=== PATIENT | male | born 1960 | race Caucasian/White ===

== ENCOUNTER 2024-07-14 16:19 | Emergency (ER) | payer BC, SELFPAY ==
--- OUTSIDE RECORDS SUMMARY | 2024-07-14 16:28 | XMS_ITS | Encounter Summary ---
Author Organization [facility] Address [address] [place] [address] Phone Care Team Providers Care Sales Advisory Manager Name Role Phone Don Caba MD Primary Care Provider [phone] Isaiah Solomon MD Unavailable Reason for Visit * Reason Comments Medication Refill Encounter Details Date Type Department Care Team (Late st Contact Info) Description 07/06/2023 Refill [facility] - [facility] [address] [place] [address] Don Caba MD [address] [address] Medication Refill Social History Tobacco Use Types Packs/Day Years Used Date Smoking Tobacco: Every Day Cigarettes 0.3 46.4 Started: 1979 Smokeless Tobacco: Never Comments:Patient states he h as 1-2 cigarettes per day Alcohol Use Standard Drinks/Week Comments Not Currently 18 (1 standard drink = 0.6 oz pu re alcohol) [facility] Utilities Answer Date Recorded In the past 12 months has [employer], gas, oil, or water company threatened to shut off services in your home? No 04/07/2023 Social Connection and Isolat ion Panel [NHANES] Answer Date Recorded In a typical week, how many times do you talk on the phone with family, friends, or neighbors? More than three times a week 04/07/2023 How often do you get togethe r with friends or relatives? More than three times a week 04/07/2023 How often do you attend chur ch or yazdanism services? Patient declined 04/07/2023 Do you belong to any clubs o r organizations such as orthodoxy groups, unions, fraternal or athletic groups, or school groups? No 04/07/2023 How often do you attend meet ings of the clubs or organizations you belong to? Never 04/07/2023 Are you , , di vorced, , never , or living with a partner? 04/07/2023 AUDIT-C Answer Date Recorded Q1: How often do you have a drink containing alc ohol? 2-3 times a week 04/07/2023 Q2: How many drinks containi ng alcohol do you have on a typical day when you are drinking? 1 or 2 04/07/2023 Q3: How often do you have si x or more drinks on one occasion? Monthly 04/07/2023 PHQ-2 Answer Date Recorded Total Score - Questions 1-9 0 02/28 [facility] - Occupational Stress Questionnaire Answer Date Recorded Do you feel stress - tense, restless, nervous, or anxious, or unable to sleep at night because your mind is troubled all the time - these days? Only a little 04/07/2023 Exercise Vital Sign Answer Date Recorde d On average, how many days pe r week do you engage in moderate to strenuous exercise (like a brisk walk)? 4 days 04/07/2023 On average, how many minutes do you engage in exercise at this level? 60 min 04/07/2023 Hunger Vital Sign Answer Date Recorded Within the past 12 months, y ou worried that your food would run out before you got the money to buy more. Patient declined Within the past 12 months, t he food you bought just didn't last and you didn't have money to get more. Patient declined 09/2023 PRAPARE - Transportation Answer Date Re corded In the past 12 months, has l ack of transportation kept you from medical appointments or from getting medications? No 09/2023 In the past 12 months, has l ack of transportation kept you from meetings, work, or from getting things needed for daily living? No 04/07/2023 Housing Stability Vital Sign Answer Mario e Recorded In the last 12 months, was t here a time when you were not able to pay the mortgage or rent on time? No 04/07/2023 In the last 12 months, how many places have you lived? 1 04/07/2023 In the last 12 months, was t here a time when you did not have a steady place to sleep or slept in a retirement (including now)? No 04/07/2023 Education Answer Date Recorded What is the highest level of school you have completed or the highest degree you have received? Bachelor's degree (e.g., BA, AB, BS) 09/29/2022 Sexually Active Control Partners Comments Not Currently Female Sex and Gender Information Value Date Recorded Sex Assigned at Not on file Legal Sex Male 9:18 PM CDT Gender Identity Not on file Sexual Orientation Not on file documented as of this encounter Miscellaneous Notes * Telephone Encounter - Marilee Emanuel RN - 07/07/2023 8:56 AM CDT Medication(s) refilled and signed per [facility] Chronic Medication Refill Standing Order for Pediatricand Adult Patients. Requested Prescriptions Pending Prescriptions Disp Refills simvastatin (ZOCOR) 40 MG Tablet [Pharmacy Med Name: SIMVASTATIN TABS 40MG] 90 Tablet 1 Sig: Take 1 Tablet by mouth nightly. Hmg CoA Reductase Inhibitors Protocol Passed - 07/06/2023 6:24 PM Passed - Visit with relevant provider in past 12 months or upcoming 90 days Recent Visits Date Type Provider Dept 04/07/23 Office Visit Don Caba MD [facility] 10/05/22 Office Visit Don Caba MD [facility] 09/29/22 Office Visit Tyrell Garcia PHARMACIST IN CHARGE, [facility] Nayan Showing recent visits within past 365 days and meeting all other requirements Future Appointments No visits were found meeting these conditions. Showing future appointments within next 90 days and meeting all other requirements Passed - Lipid panel in past 12 months LDL Date Value Ref Range Status 03/31/2023 109 <130 mg/dL Final HDL CHOLESTEROL Date Value Ref Range Status 03/31/2023 53 >40 mg/dL Final CHOLESTEROL Date Value Ref Range Status 03/31/2023 232 (H) <200 mg/dL Final TRIGLYCERIDES Date Value Ref Range Status 03/31/2023 349 (H) <150 mg/dL Final VLDL Date Value Ref Range Status 03/31/2023 70 (H) 10 - 50 mg/dL Final CHOL/HDL RATIO Date Value Ref Range Status 03/31/2023 4.4 0.0 - 4.4 Final NON-HDL CHOLESTEROL Date Value Ref Range Status 03/31/2023 179 (H) <130 mg/dL Final Passed - CMP in past 12 months SODIUM Date Value Ref Range Status 03/31/2023 139 136 - 145 mmol/L Final POTASSIUM Date Value Ref Range Status 03/31/2023 4.3 3.5 - 5.1 mmol/L Final CHLORIDE Date Value Ref Range Status 03/31/2023 106 98 - 107 mmol/L Final CO2, VENOUS Date Value Ref Range Status 03/31/2023 25 22 - 30 mmol/L Final ANION GAP Date Value Ref Range Status 03/31/2023 12.3 <18.0 mmol/L Final GLUCOSE Date Value Ref Range Status 03/31/2023 85 70 - 99 mg/dL Final BUN Date Value Ref Range Status 03/31/2023 8 8 - 26 mg/dL Final CREATININE, BLOOD Date Value Ref Range Status 03/31/2023 0.88 0.70 - 1.30 mg/dL Final BUN/CREATININE RATIO Date Value Ref Range Status 03/31/2023 9 (L) 12 - 20 ratio Final TOTAL PROTEIN Date Value Ref Range Status 03/31/2023 7.6 6.3 - 8.2 g/dL Final ALBUMIN Date Value Ref Range Status 03/31/2023 4.4 3.5 - 5.0 g/dL Final A/G RATIO Date Value Ref Range Status 03/31/2023 1.4 1.0 - 2.2 Final CALCIUM Date Value Ref Range Status 03/31/2023 9.3 8.7 - 10.5 mg/dL Final T BILI Date Value Ref Range Status 03/31/2023 0.6 0.2 - 1.2 mg/dL Final SGOT (AST) Date Value Ref Range Status 03/31/2023 25 5 - 34 U/L Final SGPT (ALT) Date Value Ref Range Status 03/31/2023 26 0 - 55 U/L Final ALKALINE PHOSPHATASE Date Value Ref Range Status 03/31/2023 92 40 - 150 U/L Final GFR, EST. NONAFRICAN Date Value Ref Range Status 03/31/2023 >60 >=60 Final GFR, EST. Date Value Ref Range Status 03/31/2023 >60 >=60 Final GFR, ESTIMATED Date Value Ref Range Status 03/31/2023 >60 >=60 Final Comment: Creatinine Clearance is the preferred criteria for selecting drug dose adjustments in renally impaired patients. The GFR is provided as additional pertinent clinical information. GFR is reported in mL/min/1.73 sq m. Calculation based on the Chronic Kidney Disease Epidemiology Collaboration (CKD- EPI) equation refitwithout adjustment for race. IS THE PATIENT REQUIRED TO BE FASTING? Date Value Ref Range Status 03/31/2023 No Final documented in this encounter Plan of Treatment Upcoming Encounters Date Type Department Care Team (Late st Contact Info) Description 10/02/2024 8:30 AM CDT Lab [facility] [address] [address] [facility] Lab/Ancillary 10/09/2024 1:30 PM CDT Office Visit [facility] - [facility] - [place] [address] [place] [address] Don Caba MD #[address] [address] documented as of this encounter Visit Diagnoses Not on filedocumented in this encounter Additional Health Concerns Assessment Noted Time PHQ-9 Depression Total Score: 0 03/12/19 21 2:36 PM [employer] documented as of this encounter Care Teams Sales Advisory Manager Relationship Specialty Start Date End Date Don Caba MD [address] [address] PCP - General Family Medicine 11/21/15 Isaiah Solomon MD [address] [address] Consulting Physician Colon and Rectal Surgery 06/24/22 documented as of this encounter
--- OUTSIDE RECORDS SUMMARY | 2024-07-14 16:28 | XMS_ITS | Clinical Summary ---
Author Organization [facility] Address [address] [address] Phone Care Team Providers Care Kettle Worker Name Role Phone Don Caba MD Primary Care Provider [phone] Isaiah Solomon MD Unavailable Allergies No known active allergies Medications Multiple Vitamin (MULTI-VITAMIN PO) Take by mouth. Active fish oil-omega-3 fatty acids 1000 MG Capsule Take 2,000 mg by mouth daily. Active ibuprofen (MOTRIN) 200 MG Tablet Take 2 Tablets by mouth every 6 hours as needed for Mild or more severe pain. 30 Tablet 3 Active Naproxen Sodium (ALEVE PO) Take by mouth. Active sildenafil citrate (VIAGRA) 100 MG TabletIndications :Vasculogenic erectile dysfunction, unspecified vasculogenic erectile dysfunction type Take 1 Tablet by mouth as needed for Erectile Dysfunction. 10 Tablet 11 4 Active losartan (COZAAR) 50 MG Tablet TAKE 1 TABLET DAILY 90 Tablet 1 4 Active simvastatin (ZOCOR) 40 MG Tablet TAKE 1 TABLET NIGHTLY 90 Tablet 1 5 Active Active Problems Problem Noted Date Diagnosed Date Postoperative ileus 08/27/2022 Polyp of cecum 08/23/2022 Cecal polyp 08/23/2022 Tobacco abuse 11/08/2016 Vasculogenic erectile dysfunction 05/03/2016 Physical exam, annual (Adult) 05/03/2016 Hyperlipemia 02/12/2015 Encounters Date Type Department Care Team Description 06/12/2024 Refill [facility] [place] [address] [place] [address] Don Caba MD Medication Refill from Last 3 Months Immunizations Immunization Administration Dates Next Due Covid-19, Mrna, Lnp-s, Bival ent, Moderna, 50 Mcg or 25 mcg dose 12/25/2021 Covid-19, Mrna, Lnp-s, Pf, 3 0 Mcg/0.3 Ml Dose (AirWatch) 03/05/2021 Influenza Vaccine 12/07/2022,01/06/2022,12/11/19 21 Influenza Vaccine less than 3 yrs 12/13/2023,02/201412/30/2015 Influenza, Seasonal, Injecta ble, Undefined 12/29/2014 Pneumococcal Vaccine Adult - 23 Valent 7 TDAP Vaccine 10/07/2016 Family History Medical History Relation Name Comments No Known Problems Daughter Bladder cancer Father Cancer Father bladder Diabetes Father Heart Disease Father High Cholesterol Father Rheumatoid Arthritis Father Cancer Maternal Grandfather Prostate Cancer Maternal Grandfather No Known Problems Maternal Grandmother Hypertension Mother Pacemaker Mother Stroke Mother No Known Problems Paternal Grandfather No Known Problems Paternal Grandmother Heart Disease Sister 1 Heart murmur No Known Problems Sister 2 No Known Problems Son Relation Name Status Comments Daughter Alive Father Alive Maternal Grandfather Maternal Grandmother Mother Alive Paternal Grandfather Paternal Grandmother Sister 1 Alive Sister 2 Alive Son Alive Social History Tobacco Use Types Packs/Day Years Used Date Smoking Tobacco: Every Day Cigarettes 0.3 46.4 Started: 1979 Smokeless Tobacco: Never Tobacco Cessation:Ready to Q uit: Not Asked; Counseling Given: No Comments:Patient states he has 1-2 cigarettes per day Alcohol Use Standard Drinks/Week Comments Not Currently 18 (1 standard drink = 0.6 oz pu re alcohol) [facility] Utilities Answer Date Recorded In the past 12 months has [employer], oil, or water [employer] threatened to shut off services in your [...] 04/07/2023 How often do you attend chur or adventist services? Patient declined 04/07/2023 Do you belong to any clubs o r organizations such as moravian groups, unions, fraternal or athletic groups, or [...] Total Score - Questions 1-9 0 02/28 [facility] - Occupational Stress Questionnaire Answer Date Recorded [...] place to sleep or slept in a nursing home (including now)? No 04/07/2023 Education Answer Date [...] on file Sexual Orientation Not on file Last Filed Vital Signs Vital Sign Reading Time Taken Comments Blood Pressure 102/62 04/11/2024 1:09 PM [employer]AIL OFFICE ASSOCIATE Pulse 82 04/11/2024 1:09 PM RETAIL OFFICE ASSOCIATE Temperature 36.5 C (97.7 F) 04/11/2024 1:09 PM RETAIL OFFICE ASSOCIATE Respiratory Rate 16 04/11/2024 1:09 PM RETAIL OFFICE ASSOCIATE Oxygen Saturation 100% 04/11/2024 1:09 PM RETAIL OFFICE ASSOCIATE Inhaled Oxygen Concentration - - Weight 86.4 kg (190 lb 6.4 oz) 04/11/2024 1:09 P M RETAIL OFFICE ASSOCIATE Height 175.3 cm (5' 9 ) 04/11/2024 1:09 PM RETAIL OFFICE ASSOCIATE Body Mass Index 28.12 04/11/2024 1:09 PM RETAIL OFFICE ASSOCIATE Plan of Treatment Upcoming Encounters Date Type Department Care Team (Late st Contact Info) Description 10/02/2024 8:30 AM CDT Lab [facility] [address] [place] [address] [facility]/Ancillary 10/09/2024 1:30 PM CDT Office Visit [facility] [place] [address] [place] [address] Don Caba MD [address] [address] Health Maintenance Due Date Last Done Comments Hepatitis C Virus (HCV) Screening 1960 Cologuard 08/13/2009 Immunochemical Fecal Occult Blood 08/13/2009 Zoster Immunization (1 of 2) 08/13/2009 Pneumococcal Immunization (50+ years) (2 of 2 - PCV) 11/08/2017 11/08/2016 Td Immunization Every 10 Years (Adults With 1 Tdap) 10/07/2026 10/07/2016 Colonoscopy 06/08/2032 06/08/2022, 02/05/2014 Colorectal Cancer Screening 06/08/2032 Respiratory Syncytial Virus (RSV) Immunization (Adult) (1 - 1-dose 75+ series) 08/13/2034 06/08/2022, 02/05/2014 Pneumococcal Immunization Combined Discontinued 11/08/2016 Lung Cancer Screening Discontinued 08/25/2022 PSA Discussion Completed 10/06/2023, 02/28, 04/27/2016, Additional history exists Influenza Immunization Completed 4, 12/07/2022, 01/06/2022, Additional history exists SARS-COV-2 Immunization Completed 12/27/19 24, 12/06/2022, 12/25/2021, Additional history exists Hepatitis B Immunization Aged Out No longer eligible based on patient's age to complete this topic Meningococcal Immunization (ACWY) Aged Out No longer eligible based on patient's age to complete this topic Rotavirus Immunization Aged Out No lo nger eligible based on patient's age to complete this topic Procedures Procedure Name Priority Date/Time Associated Diagnosis Comments PSA SCREEN Routine 10/06/2023 7:52 AM CDT Screening for prostate cancer CT ANGIO CHEST W/WO ABDOMEN PELVIS W CONTRAST STAT 08/25/2022 8:35 AM CDT HM COLONOSCOPY Routine 02/05/2014 from Last 3 Months or Most Recently Relevant to Health Maintenance Results * PSA SCREEN (10/06/2023 7:52 AM CDT) PSA SCREEN, TOTAL 1.32 <4.00 ng/mL 10/06/2023 1:35 PM CDT [facility] Blood Venipuncture / Unknown 10/06/2023 7:52 AM CDT 10/06/2023 7:52 AM CDT Narrative [facility] - 10/06/2023 1:35 PM CDT The ALINITY Total PSA assay is a Chemiluminescent Microparticle Immunoassay (CMIA) for the quantitative determination of total PSA (both free PSA and PSA complexed to [id number]) in human serum. Total PSA values obtained with different assay methods, including Butler PSA assays, cannot be used interchangeably. us Don Caba MD CHEMISTRY ORDERABLES Final Re sult [facility] [address] [place] [address] * CT ANGIO CHEST W/WO ABDOMEN PELVIS W CONTRAST (08/25/2022 8:35 AM CDT) Anatomical Region Laterality Modality Chest N/A Computed Tomogra phy 08/25/2022 9:06 AM CDT Impressions 08/25/2022 9:09 AM CDT IMPRESSION: No evidence of pulmonary embolism. Consolidation of the right lung base, and to a lesser extent the left lung base. Findings are concerning for pneumonia and/or aspiration. Significant postoperative atelectasis could potentially have a similar appearance. Clinical correlation recommended. Surgical changes of right hemicolectomy and ileocolic anastomosis. Small to moderate free air and free fluid are within expected limits 2 days postoperatively. No convincing evidence of obstruction or fátima leak at the anastomotic site in the right upper quadrant. Abnormally distended and fluid-filled small bowel with multiple air-fluid levels. Gradual transition to more normal caliber in the distal ileum. Delayed passage of oral contrast into the stomach, duodenum, and proximal most loops of jejunum. Findings are most compatible with a significant postoperative ileus. Narrative 08/25/2022 9:09 AM CDT EXAM DESCRIPTION: CT ANGIO CHEST W/WO ABDOMEN PELVIS W CONTRAST REASON FOR STUDY: evaluate for PE s/p RT hemicolectomy on 08/23/22 leak at site. pt has fever . TECHNIQUE: CT angiogram of the chest with routine abdomen and pelvis performed with intravenous and with oral contrast using helical scanning technique with dynamic intravenous contrast injection. Reconstructed coronal and sagittal MPR images reviewed. All images stored on PACS. 3D MIP images of the chest rendered on scanning unit and reviewed at time of interpretation. Automated exposure control was used as a dose optimization technique for this examination. CONTRAST TYPE/DOSE: 100mL of IOPAMIDOL 76 % IV SOLN injected via Intravenous COMPARISON: None available REFERENCE: Per ACR white paper recommendations, unless otherwise specified no follow-up imaging is recommended for incidental renal and adrenal lesions per consensus recommendations based on imaging criteria. Further lab evaluation could be pursued based on clinical findings. FINDINGS: CHEST CHEST VASCULATURE: Contrast opacification of the pulmonary arterial system is adequate for diagnostic purposes. There is no evidence of pulmonary embolism. LUNGS: Consolidation of the right lung base. Milder opacities in the left lower lobe, consolidation or atelectasis. Large airways are clear. No significant structural lung disease scratch at minor apical emphysematous changes. No suspicious pulmonary mass or nodule seen. PLEURA: No effusion. No pneumothorax. MEDIASTINUM/KERVIN: Bulky calcified granulomas in the mediastinum. No mediastinal or hilar lymphadenopathy. No mediastinal mass. Unremarkable included portions of the thyroid. HEART: Heart size is normal with no pericardial effusion. Coronary calcifications, most pronounced in the left anterior descending artery. Nonaneurysmal thoracic aorta with conventional 3 vessel arch branching pattern and mild atherosclerosis. AXILLA: No adenopathy. CHEST WALL: No masses. No subcutaneous air. HARDWARE/LINES/TUBES: None. MUSCULOSKELETAL CHEST: No acute fracture. No suspicious osseous lesion. Fused anterior osteophytes in the lower thoracic spine. Mild disc degeneration. Significant degenerative changes of both shoulders. ABDOMEN/PELVIS LIVER: Normal size and contour. Patent and normally enhancing portal venous system. No focal liver lesion. No significant steatosis. GALLBLADDER: Mostly decompressed and normal in appearance. BILE DUCTS: No intrahepatic or extrahepatic biliary dilation. SPLEEN: Normal size and contour. Calcified granulomas. PANCREAS: Normal parenchymal bulk, morphology, and enhancement pattern. No duct dilation. No inflammatory change. ADRENALS: Normal. KIDNEYS/URINARY TRACT: Normal and symmetric renal size, contour, and enhancement. Simple cyst in the anterior right mid kidney. No stones. No hydroureteronephrosis. Urinary bladder is unremarkable. GI/PERITONEUM: Surgical changes of right hemicolectomy and ileocolic anastomosis are evident. No obstruction. No discrete fluid collection adjacent to the anastomotic site. There is small volume free fluid in the abdomen and pelvis. There is small to moderate free air, within expected limits 2 days postoperatively. There is abnormal distension and fluid filling the small bowel, with multiple air-fluid levels. There is delayed passage of oral contrast, which is seen within the stomach, duodenum, and proximal most loops of jejunum. There is gradual transition to more normal caliber in the distal ileum, without focal transition point. There is colonic diverticulosis without evidence of acute diverticulitis. RETROPERITONEUM: No mass or adenopathy. REPRODUCTIVE: No significant abnormality. VASCULATURE ABDOMEN: No abdominal aortic aneurysm. Moderate atherosclerotic calcifications. MUSCULOSKELETAL ABDOMEN PELVIS: No acute fracture. No suspicious lytic or sclerotic bone lesion. [id number] disc degeneration in the lumbar spine. OTHER: No significant abnormality. THIS IS AN ELECTRONICALLY VERIFIED FINAL REPORT 08/25/2022 9:06 AM - Electronically signed by Duong Persaud M.D. BC: JONH Report ID: [id number] Reading Location: [id number] Procedure Note Duong Persaud MD - 08/25/2022 EXAM DESCRIPTION: CT ANGIO CHEST W/WO ABDOMEN PELVIS W CONTRAST REASON FOR STUDY: evaluate for PE s/p RT hemicolectomy on 08/23/22 leak at site. pt has fever . TECHNIQUE: CT angiogram of the chest with routine abdomen and pelvis performed with intravenous and with oral contrast using helical scanning technique with dynamic intravenous contrast injection. Reconstructed coronal and sagittal MPR images reviewed. All images stored on PACS. 3D MIP images of the chest rendered on scanning unit and reviewed at time of interpretation. Automated exposure control was used as a dose optimization technique for this examination. CONTRAST TYPE/DOSE: 100mL of IOPAMIDOL 76 % IV SOLN injected via Intravenous COMPARISON: None available REFERENCE: Per ACR white paper recommendations, unless otherwise specified no follow-up imaging is recommended for incidental renal and adrenal lesions per consensus recommendations based on imaging criteria. Further lab evaluation could be pursued based on clinical findings. FINDINGS: CHEST CHEST VASCULATURE: Contrast opacification of the pulmonary arterial system is adequate for diagnostic purposes. There is no evidence of pulmonary embolism. LUNGS: Consolidation of the right lung base. Milder opacities in the left lower lobe, consolidation or atelectasis. Large airways are clear. No significant structural lung disease scratch at minor apical emphysematous changes. No suspicious pulmonary mass or nodule seen. PLEURA: No effusion. No pneumothorax. MEDIASTINUM/KERVIN: Bulky calcified granulomas in the mediastinum. No mediastinal or hilar lymphadenopathy. No mediastinal mass. Unremarkable included portions of the thyroid. HEART: Heart size is normal with no pericardial effusion. Coronary calcifications, most pronounced in the left anterior descending artery. Nonaneurysmal thoracic aorta with conventional 3 vessel arch branching pattern and mild atherosclerosis. AXILLA: No adenopathy. CHEST WALL: No masses. No subcutaneous air. HARDWARE/LINES/TUBES: None. MUSCULOSKELETAL CHEST: No acute fracture. No suspicious osseous lesion. Fused anterior osteophytes in the lower thoracic spine. Mild disc degeneration. Significant degenerative changes of both shoulders. ABDOMEN/PELVIS LIVER: Normal size and contour. Patent and normally enhancing portal venous system. No focal liver lesion. No significant steatosis. GALLBLADDER: Mostly decompressed and normal in appearance. BILE DUCTS: No intrahepatic or extrahepatic biliary dilation. SPLEEN: Normal size and contour. Calcified granulomas. PANCREAS: Normal parenchymal bulk, morphology, and enhancement pattern. No duct dilation. No inflammatory change. ADRENALS: Normal. KIDNEYS/URINARY TRACT: Normal and symmetric renal size, contour, and enhancement. Simple cyst in the anterior right mid kidney. No stones. No hydroureteronephrosis. Urinary bladder is unremarkable. GI/PERITONEUM: Surgical changes of right hemicolectomy and ileocolic anastomosis are evident. No obstruction. No discrete fluid collection adjacent to the anastomotic site. There is small volume free fluid in the abdomen and pelvis. There is small to moderate free air, within expected limits 2 days postoperatively. There is abnormal distension and fluid filling the small bowel, with multiple air-fluid levels. There is delayed passage of oral contrast, which is seen within the stomach, duodenum, and proximal most loops of jejunum. There is gradual transition to more normal caliber in the distal ileum, without focal transition point. There is colonic diverticulosis without evidence of acute diverticulitis. RETROPERITONEUM: No mass or adenopathy. REPRODUCTIVE: No significant abnormality. VASCULATURE ABDOMEN: No abdominal aortic aneurysm. Moderate atherosclerotic calcifications. MUSCULOSKELETAL ABDOMEN PELVIS: No acute fracture. No suspicious lytic or sclerotic bone lesion. [id number] disc degeneration in the lumbar spine. OTHER: No significant abnormality. THIS IS AN ELECTRONICALLY VERIFIED FINAL REPORT 08/25/2022 9:06 AM - Electronically signed by Duong Persaud M.D. BC: JONH Report ID: [id number] Reading Location: [id number] IMPRESSION: No evidence of pulmonary embolism. Consolidation of the right lung base, and to a lesser extent the left lung base. Findings are concerning for pneumonia and/or aspiration. Significant postoperative atelectasis could potentially have a similar appearance. Clinical correlation recommended. Surgical changes of right hemicolectomy and ileocolic anastomosis. Small to moderate free air and free fluid are within expected limits 2 days postoperatively. No convincing evidence of obstruction or fátima leak at the anastomotic site in the right upper quadrant. Abnormally distended and fluid-filled small bowel with multiple air-fluid levels. Gradual transition to more normal caliber in the distal ileum. Delayed passage of oral contrast into the stomach, duodenum, and proximal most loops of jejunum. Findings are most compatible with a significant postoperative ileus. us Isaiah Solomon MD IMG CT ORDERABLES Final Result * COLONOSCOPY (02/05/2014) us Alejandro Alejo Jr., MD PROCEDURE/MINOR LANI GICAL ORDERABLES Final Result from Last 3 Months or Most Recently Relevant to Health Maintenance [place] [address] [place] [address] Advance Directives * Full Code (Latest Code Status on File) Date Activated Date Inactivated Comments 08/23/2022 3:31 PM 09/01/2022 3:53 PM CPR-Full Kelli tment: FULL ARREST: Attempt Resuscitation/CPR wit intubation and mechanical ventilation. PRE-ARREST: Use entire range of life support measures to stabilize the patient. Care Teams Kettle Worker Relationship Specialty Start Date End Date Don Caba MD #2 [facility] [address] [place] [address] PCP - General Family Medicine 11/21/15 Isaiah Solomon MD #2 [facility] [address] [place] [address] Consulting Physician Colon and Rectal Surgery 06/24/22
--- OUTSIDE RECORDS SUMMARY | 2024-07-14 16:28 | XMS_ITS | Encounter Summary ---
Author Organization [facility] Address [address] [place] [address] Phone Care Team Providers Care Strip Cleaner Name Role Phone Don Caba MD Primary Care Provider [phone] Isaiah Solomon MD Unavailable Encounter Details Date Type Department Care Team (Late st Contact Info) Description 07/28/2022 Transcribe [facility] [address] [place] [id number] Isaiah Solomon MD #[address] [address] Pre-op testing (Primary Dx) Social History Tobacco Use Types Packs/Day Years Used Date Smoking Tobacco: Every Day Cigarettes 0.8 46.4 Started: 1979 Smokeless Tobacco: Never Alcohol Use Standard Drinks/Week Comments Yes 6 (1 standard drink = 0.6 oz pur e alcohol) 6 pack a week PHQ-2 Answer Date Recorded Total Score - Questions 1-9 0 02/28 Sexually Active Control Partners Comments Not Currently Female Sex and Gender Information Value Date Recorded Sex Assigned at Not on file Legal Sex Male 9:18 PM CDT Gender Identity Not on file Sexual Orientation Not on file COVID-19 Exposure Response Date Recorded In the last 10 days, have yo u been in contact with someone who was confirmed or suspected to have Coronavirus/COVID-19? No / Unsure 06/30/2022 1:07 PM CDT documented as of this encounter Plan of Treatment Upcoming Encounters Date Type Department Care Team (Late st Contact Info) Description 10/02/2024 8:30 AM CDT Lab [facility] [address] [address] [facility] Lab/Ancillary 10/09/2024 1:30 PM CDT Office Visit [facility] - Family Medicine - [place] [address] [place] [address] Don Caba MD [address] [address] documented as of this encounter Results * SARS-COV-2 BY MOLECULAR (08/20/2022 10:11 AM CDT) SARSCOV2 NOT DETECTED (Referenc e Range for this test is Not Detected) [facility] ID NOW 08/20/2022 11:06 AM CDT [facility] Comment:This test was perfor med by a MOLECULAR, NON-PCR method Other NASOPHARYNGEAL STRUCTURE / Unknown Non-Phlebotomy Collection / Unknown 08/20/2022 10:11 AM CDT 08/20/2022 10:51 AM CDT Narrative [facility] - 08/20/2022 11:06 AM CDT This test has been authorized by the FDA under an Emergency Use Authorization (EUA) only. Negative results should be treated as presumptive and, if inconsistent with clinical signs and symptoms or necessary for patient management, the patient should be tested with an alternative molecular assay. Negative results do not preclude SARS-CoV-2 infection or any other respiratory pathogen. Additional information for Clinicians can be found at: https://www.fda.gov/media/790936/download Additional information for Patients can be found at: https://www.fda.gov/media/428939/download Isaiah Solomon MD MICROBIOLOGY - GENERAL ORDERABLE S Final Result [facility] [address] [place] [address] documented in this encounter Visit Diagnoses Diagnosis Pre-op testing- Primary Preoperative examination, unspecified documented in this encounter Additional Health Concerns Assessment Noted Time PHQ-9 Depression Total Score: 0 03/12/19 21 2:36 PM [employer] LINUX ADMINISTRATOR documented as of this encounter Care Teams Strip Cleaner Relationship Specialty Start Date End Date Don Caba MD [address] [facility] [address] [place] [address] PCP - General Family Medicine 11/21/15 Isaiah Solomon MD [address] [facility] [address] [place] [address] Consulting Physician Colon and Rectal Surgery 06/24/22 documented as of this encounter
--- OUTSIDE RECORDS SUMMARY | 2024-07-14 16:28 | XMS_ITS | Encounter Summary ---
Author Organization [facility] Address [address] [place] [address] Phone Care Team Providers Care Manager Oracle Name Role Phone Don Caba MD Primary Care Provider [phone] Isaiah Solomon MD Unavailable Reason for Visit * Reason Comments Medication Refill Encounter Details Date Type Department Care Team (Late st Contact Info) Description 05/15/2022 Refill [facility] - Family Medicine [facility] #2 [place] [address] Don Caba MD #[address] [address] Medication Refill Social History Tobacco Use Types Packs/Day Years Used Date Smoking Tobacco: Every Day Cigarettes Smokeless Tobacco: Never Alcohol Use Standard Drinks/Week Comments Yes 0 (1 standard drink = 0.6 oz pur e alcohol) PHQ-2 Answer Date Recorded Total Score - Questions 1-9 0 02/28 Sex and Gender Information Value Date Recorded Sex Assigned at Not on file Legal Sex Male 9:18 PM CDT Gender Identity Not on file Sexual Orientation Not on file documented as of this encounter Miscellaneous Notes * Telephone Encounter - Marilee Emanuel RN - 05/17/2022 9:19 AM CDT PRN medication requires review from provider Per nursing clinical judgement, provider to review and approve the medication(s) order(s) if appropriate. Requested Prescriptions Pending Prescriptions Disp Refills sildenafil citrate (VIAGRA) 100 MG Tablet [Pharmacy Med Name: Sildenafil Citrate 100 MG Oral Tablet] 10 Tablet 0 Sig: TAKE 1 TABLET BY MOUTH ONCE DAILY NEEDED FOR ERECTILE DYSFUNCTION Erectile Dysfunction Medication Protocol Passed - 05/15/2022 9:16 AM Passed - Visit with relevant provider in past 12 months or upcoming 90 days Recent Visits Date Type Provider Dept 03/17/22 Office Visit Don Caba MD [facility] 09/14/21 Office Visit Don Caba MD [facility] Showing recent visits within past 365 days and meeting all other requirements Future Appointments No visits were found meeting these conditions. Showing future appointments within next 90 days and meeting all other requirements Passed - Absence of nitrates on med list Passed - Erectile dysfunction on problem list documented in this encounter Plan of Treatment Upcoming Encounters Date Type Department Care Team (Late st Contact Info) Description 10/02/2024 8:30 AM CDT Lab [facility] #[address] [address] [facility] 10/09/2024 1:30 PM CDT [facility] - [place] #2 [place] [address] Don Caba MD #[address] [address] documented as of this encounter Visit Diagnoses Not on filedocumented in this encounter Additional Health Concerns Assessment Noted Time PHQ-9 Depression Total Score: 0 03/12/19 21 2:36 PM ESTIMATOR PAPERBOARD BOXES documented as of this encounter Care Teams Manager Oracle Relationship Specialty Start Date End Date Don Caba MD #[address] [address] PCP - General Family Medicine 11/21/15 Isaiah Solomon MD [address] [place] [id number] Consulting Physician Colon and Rectal Surgery 06/24/22 documented as of this encounter
--- OUTSIDE RECORDS SUMMARY | 2024-07-14 16:28 | XMS_ITS | Referral Summary ---
Author Organization [facility] Address [address] [place] [address] Care Team Providers Care Release Engineer Name Role Phone Don Caba MD Primary Care Provider [phone] Allergies No known active allergies Medications fenofibrate nanocrystallized (TRICOR) 145 mg tablet Take 145 mg by mouth daily 9 Active sildenafiL (VIAGRA) 100 mg tablet Take 100 mg by mouth daily as needed 8 Active simvastatin (ZOCOR) 40 mg tablet Take 40 mg by mouth nightly 0 Active traMADoL (ULTRAM) 50 mg tablet Take 50 mg by mouth every 8 (eight) hours as needed 0 Active losartan (COZAAR) 50 mg tablet Take 1 tablet (50 mg total) by mouth daily Active omega-3 fatty acids-fish oil 300-1,000 mg capsule Take 2 capsules (2 g total) by mouth daily Active multivitamin tabletIndications:Vi tamin Deficiency Prevention Take 1 tablet by mouth Active Active Problems No known active problems Social History Tobacco Use Types Packs/Day Years Used Date Smoking Tobacco: Former Cigarettes 0.8 35 Tobacco Cessation:Counseling Given: Not Answered Personal Safety Answer Date Recorded Getting School Help Needed Not on file 05/13 Sex and Gender Information Value Date Recorded Sex Assigned at Not on file Legal Sex Male 6:26 PM MEDICAL CLERK Gender Identity Not on file Sexual Orientation Not on file Last Filed Vital Signs Vital Sign Reading Time Taken Comments Blood Pressure 116/71 11/28/2023 1:59 PM CDT Pulse 97 11/28/2023 1:59 PM CDT Temperature 36.2 C (97.1 F) 01/07/2020 8:27 AM MEDICAL CLERK Respiratory Rate - - Oxygen Saturation - - Inhaled Oxygen Concentration - - Weight 85.7 kg (189 lb) 11/28/2023 1:59 PM CDT Height 175.3 cm (5' 9 ) 11/28/2023 1:59 PM CDT Body Mass Index 27.91 11/28/2023 1:59 PM CDT Plan of Treatment Not on file Insurance [employer] ACCESS CHOICE [employer] ACCESS CHOICE Care Teams Release Engineer Relationship Specialty Start Date End Date Don Caba MD [address] [facility] [address] PCP - General Family Medicine 12/31/19
--- OUTSIDE RECORDS SUMMARY | 2024-07-14 16:28 | XMS_ITS | Encounter Summary ---
Author Organization [facility] Address [address] [place] [address] Phone Care Team Providers Care Joint Filler Name Role Phone Don Caba MD Primary Care Provider [phone] Isaiah Solomon MD Unavailable Reason for Visit * Reason Comments Medication Refill Encounter Details Date Type Department Care Team (Late st Contact Info) Description 03/04/2020 [facility]ill [facility] [address] [place] [address] Don Caba MD #[address] [address] Medication Refill Social History Tobacco Use Types Packs/Day Years Used Date Smoking Tobacco: Every Day Cigarettes Smokeless Tobacco: Never Alcohol Use Standard Drinks/Week Comments Yes 0 (1 standard drink = 0.6 oz pur e alcohol) PHQ-2 Answer Date Recorded PHQ-2 Score 0 11/09/2018 Sex and Gender Information Value Date Recorded Sex Assigned at Not on file Legal Sex Male 9:18 PM CDT Gender Identity Not on file Sexual Orientation Not on file documented as of this encounter Miscellaneous Notes * Telephone Encounter - Mary Hardy RMA - 03/05/2020 10:44 AM PATIENT CARRIER Pt scheduled 03/12 at 2:45 ENT CARRIER * Telephone Encounter - Marilee Emanuel RN - 03/04/2020 9:45 AM CST Patient needs appointment for refills. ENT CARRIER * Telephone Encounter - Lilli Butterfield RN - 03/04/2020 8:54 AM CST Medication failed the protocol, provider to review and approve the medication order if appropriate. Pt was seen 05/30/2019 for telephone visit. Requested Prescriptions Pending Prescriptions Disp Refills simvastatin (ZOCOR) 40 MG Tablet [Pharmacy Med Name: SIMVASTATIN TABS 40MG] 90 Tab 3 Sig: TAKE 1 TABLET NIGHTLY Cardiovascular: Antilipid - HMG-CoA Reductase Inhibitors Failed - 03/04/2020 7:21 AM Failed - Valid encounter within last 12 months Past Office Visits Recent Outpatient Visits 1 year ago Disseminated herpes zoster [facility] Justyna Freitas APN, CNP 1 year ago Physical exam, annual (Adult) [facility] - Don Mukherjee MD 1 year ago Mixed hyperlipidemia [facility] - Don Mukherjee MD 2 years ago Mixed hyperlipidemia [facility] - Don Mukherjee MD 2 years ago Tobacco abuse [facility] Don Mukherjee MD Upcoming Appointments [facility] - Recent and Past Visits Recent Visits Date Type Provider Dept 02/14/19 Office Visit Justyna Rocha APN, CNP [facility] Showing recent visits within past 460 days with a meds authorizing provider and meeting all other requirements Future Appointments No visits were found meeting these conditions. Showing future appointments within next 90 days with a meds authorizing provider and meeting all other requirements ENT CARRIER documented in this encounter Plan of Treatment Upcoming Encounters Date Type Department Care Team (Late st Contact Info) Description 10/02/2024 8:30 AM CDT Lab [facility] #[address] [address] [place] Lab/Ancillary 10/09/2024 1:30 PM CDT Office Visit [facility] - [facility] [address] [place] [address] Don Caba MD #2 [facility] [address] [place] [address] documented as of this encounter Visit Diagnoses Not on filedocumented in this encounter Additional Health Concerns Assessment Noted Time PHQ-9 Depression Total Score: 0 05/24/19 19 12:00 PM CDT documented as of this encounter Care Teams Joint Filler Relationship Specialty Start Date End Date Don Caba MD #2 [facility] [address] [place] [address] PCP - General Family Medicine 11/21/15 Isaiah Solomon MD #2 [facility] [address] [place] [address] Consulting Physician Colon and Rectal Surgery 06/24/22 documented as of this encounter
--- OUTSIDE RECORDS SUMMARY | 2024-07-14 16:28 | XMS_ITS | Encounter Summary ---
Author Organization [facility] Address [address] [place] [address] Phone Care Team Providers Care Inker Name Role Phone Don Caba MD Primary Care Provider [phone] Isaiah Solomon MD Unavailable Reason for Visit * Reason Comments Medication Refill Encounter Details Date Type Department Care Team (Late st Contact Info) Description 06/08/2023 Refill [facility] - Family Medicine [facility] #2 [place] [address] Don Caba MD #[address] [address] Medication Refill Social History Tobacco Use Types Packs/Day Years Used Date Smoking Tobacco: Every Day Cigarettes 0.3 46.4 Started: 1979 Smokeless Tobacco: Never Comments:Patient states he h as 1-2 cigarettes per day Alcohol Use Standard Drinks/Week Comments Not Currently 18 (1 standard drink = 0.6 oz pu re alcohol) [facility] Utilities Answer Date Recorded In the past 12 months has [employer], gas, oil, or water company threatened to [...] often do you attend chur ch or scientologist services? Patient declined 04/07/2023 Do you belong to any clubs o r organizations such as christian groups, unions, fraternal or athletic groups, or [...] Total Score - Questions 1-9 0 02/28 [facility] - Occupational Stress Questionnaire Answer Date Recorded [...] place to sleep or slept in a care home (including now)? No 04/07/2023 Education Answer [...] Telephone Encounter - Marilee Emanuel RN - 06/09/2023 10:23 AM CDT Per nursing clinical judgement, provider to review and approve the medication(s) order(s) if appropriate. Requested Prescriptions Pending Prescriptions Disp Refills sildenafil citrate (VIAGRA) 100 MG Tablet [Pharmacy Med Name: Sildenafil Citrate 100 MG Oral Tablet] 10 Tablet 0 Sig: TAKE 1 TABLET BY MOUTH ONCE DAILY NEEDED FOR ERECTILE DYSFUNCTION Erectile Dysfunction Medication Protocol Passed - 06/08/2023 7:09 PM Passed - Visit with relevant provider in past 12 months or upcoming 90 days Recent Visits Date Type Provider Dept 04/07/23 Office Visit Don Caba MD [facility] 10/05/22 Office Visit Don Caba MD [facility] 09/29/22 Office Visit Tyrell Garcia APRN, [facility] [place] Showing recent visits within past 365 [...] Info) Description 10/02/2024 8:30 AM CDT Lab [facility] [address] [facility] [place] [address] [place] Lab/Ancillary 10/09/2024 1:30 PM CDT Office Visit [facility] - Family Medicine - [place] [address] [place] [address] Don Caba MD [address] [facility] [address] [place] [address] documented as of this encounter Visit Diagnoses Not on filedocumented in this encounter Additional Health Concerns Assessment Noted Time PHQ-9 Depression Total Score: 0 03/12/19 21 2:36 PM FATS AND OILS LOADER documented as of this encounter Care Teams Inker Relationship Specialty Start Date End Date Don Caba MD [address] [address] PCP - General Family Medicine 11/21/15 Isaiah Solomon MD [address] [address] Consulting Physician Colon and Rectal Surgery 06/24/22 documented as of this encounter
--- OUTSIDE RECORDS SUMMARY | 2024-07-14 16:28 | XMS_ITS | Clinical Summary ---
Author Organization [facility] Address [address] [place] [address] Care Team Providers Care Ticket Maker Name Role Phone Don Caba MD Primary Care Provider [phone] Allergies No known active allergies Medications fenofibrate [...] Active Active Problems No known active problems Surgical History Surgery Date Site/Laterality Comments KNEE SURGERY SHOULDER SURGERY COLON SURGERY 08/28/2022 - 09/27/2022 Medical History Medical History Date Comments Hypercholesteremia Hypertension Family History Medical History Relation Name Comments Arthritis Other Cancer Other Diabetes Other Heart disease Other Hypertension Other Relation Name Status Comments Other Social History Tobacco Use Types Packs/Day Years Used Date Smoking Tobacco: Former Cigarettes 0.8 35 Tobacco Cessation:Counseling Given: Not Answered Personal Safety Answer Date Recorded Getting School Help Needed Not on file 05/13 Sex and Gender Information Value Date Recorded Sex Assigned at Not on file Legal Sex Male 6:26 PM [place] Gender Identity Not on file Sexual Orientation Not on file Obstetrics History Last Filed Vital Signs Vital Sign Reading Time Taken Comments Blood Pressure 116/71 11/28/2023 1:59 PM CDT Pulse 97 11/28/2023 1:59 PM CDT Temperature 36.2 C (97.1 F) 01/07/2020 8:27 AM BUCCARO Respiratory Rate - - Oxygen Saturation - - Inhaled Oxygen Concentration - - Weight 85.7 kg (189 lb) 11/28/2023 1:59 PM CDT Height 175.3 cm (5' 9 ) 11/28/2023 1:59 PM CDT Body Mass Index 27.91 11/28/2023 1:59 PM CDT Plan of Treatment Health Maintenance Due Date Last Done Comments Colon Cancer Screening-Colonoscopy 1959 Depression Screening 1959 Hepatitis C Screening 1959 Prostate Cancer Screening-PSA 1959 Hepatitis B Screening 08/13/1977 Regular Well Visit/Exam 18-64 08/13/1977 Zoster Vaccine (1 of 2) 08/13/2009 Covid-19 Vaccine ( season) 2023 03/05/2021, 02/05/2021, 03/27/2020, Additional history exists Influenza Vaccine (#1) 2023 , 01/06/2022, 12/10/2020, Additional history exists DTaP/Tdap/Td Vaccine (2 - Td or Tdap) 10/07/2026 10/07/2016 Pneumococcal vaccine <65 Aged Out 11/08/2016 No longer eligible based on patient's age to complete this topic [place] [address] [place] [address] [employer] CHOICE ANTH ACCESS CHOICE Care Teams Ticket Maker Relationship Specialty Start Date End Date Don Caba MD [address] [place] [id number] PCP - General Family Medicine 12/31/19
--- OUTSIDE RECORDS SUMMARY | 2024-07-14 16:28 | XMS_ITS | Encounter Summary ---
Author Organization [facility] Address [address] [place] [address] Phone Care Team Providers Care Labor Custodian Name Role Phone Don Caba MD Primary Care Provider [phone] Isaiah Solomon MD Unavailable Reason for Visit * Reason Comments Medication Refill Encounter Details Date Type Department Care Team (Late st Contact Info) Description 04/01/2023 Refill [facility] - Family Medicine [facility] #2 [place] [address] Don Caba MD #[address] [address] Medication Refill Social History Tobacco Use Types Packs/Day Years Used Date Smoking Tobacco: Every Day Cigarettes 0.3 46.4 Started: 1979 Smokeless Tobacco: Never Comments:Patient states he h as 1-2 cigarettes per day Alcohol Use Standard Drinks/Week Comments Not Currently 18 (1 standard drink = 0.6 oz pu re alcohol) PHQ-2 Answer Date Recorded Total Score - Questions 1-9 0 02/28 Education Answer Date Recorded What is the [...] Telephone Encounter - Marilee Emanuel RN - 04/01/2023 5:30 PM CST PRN medication requires review from provider Per nursing clinical judgement, provider to review and approve the medication(s) order(s) if appropriate. Requested Prescriptions Pending Prescriptions Disp Refills sildenafil citrate (VIAGRA) 100 MG Tablet [Pharmacy Med Name: Sildenafil Citrate 100 MG Oral Tablet] 10 Tablet 0 Sig: TAKE 1 TABLET BY MOUTH ONCE DAILY NEEDED FOR ERECTILE DYSFUNCTION Erectile Dysfunction Medication Protocol Passed - 04/01/2023 5:04 PM Passed - Visit with relevant provider in past 12 months or upcoming 90 days Recent Visits Date Type Provider Dept 10/05/22 Office Visit Don Caba MD [facility] [place] 09/29/22 [facility] Show[facility] recent visits within past 365 days and meeting all other requirements Future Appointments Date Type Provider Dept 04/07/23 Appointment Don Caba MD [facility] [place] Showing future appointments within next 90 days and meeting all other requirements Passed - Absence of nitrates on med list Passed - Erectile dysfunction on problem list ITE EXTERMINATOR HELPER documented in this encounter Plan of Treatment Upcoming Encounters Date Type Department Care Team (Late st Contact Info) Description 10/02/2024 8:30 AM CDT Lab [facility] [address] [address] [place] Lab/Ancillary 10/09/2024 1:30 PM CDT [facility] [place] [facility] [place] [address] Don Caba MD #[address] [address] documented as of this encounter Visit Diagnoses Not on filedocumented in this encounter Additional Health Concerns Assessment Noted Time PHQ-9 Depression Total Score: 0 01/13/20 21 2:36 PM TERMITE EXTERMINATOR HELPER documented as of this encounter Care Teams Labor Custodian Relationship Specialty Start Date End Date Don Caba MD #2 [facility] [address] [place] [address] PCP - General Family Medicine 11/21/15 Isaiah Solomon MD #2 [facility] [address] [place] [address] Consulting Physician Colon and Rectal Surgery 06/24/22 documented as of this encounter
--- OUTSIDE RECORDS SUMMARY | 2024-07-14 16:28 | XMS_ITS | Encounter Summary ---
Author Organization [facility] Address [address] [place] [address] Phone Care Team Providers Care Editor In Chief Newspaper Name Role Phone Don Caba MD Primary Care Provider [phone] Isaiah Solomon MD Unavailable Reason for Visit * Reason Comments Medication Refill Encounter Details Date Type Department Care Team (Late st Contact Info) Description 08/07/2023 Refill [facility] Group - Family Medicine [facility] #2 [place] [address] Don Caba MD #[address] [address] Medication Refill Social History Tobacco Use Types Packs/Day Years Used Date Smoking Tobacco: Every Day Cigarettes 0.3 46.4 Started: 1979 Smokeless Tobacco: Never Comments:Patient states he h as 1-2 cigarettes per day Alcohol Use Standard Drinks/Week Comments Not Currently 18 (1 standard drink = 0.6 oz pu re alcohol) [facility] Utilities Answer Date Recorded In the past 12 months has [employer], gas, oil, or water company threatened to [...] often do you attend chur ch or yarsanism services? Patient declined 04/07/2023 Do you belong to any clubs o r organizations such as latter day groups, unions, fraternal or athletic groups, or [...] Total Score - Questions 1-9 0 02/28 [facility] - Occupational Stress Questionnaire Answer Date Recorded [...] place to sleep or slept in a fpc (including now)? No 04/07/2023 Education Answer Date [...] Telephone Encounter - Marilee Emanuel RN - 08/08/2023 9:53 AM CDT Medication(s) [facility] and [facility] Medication Refill Standing Order for Pediatricand Adult Patients. Requested Prescriptions Pending Prescriptions Disp Refills losartan (COZAAR) 50 MG Tablet [Pharmacy Med Name: LOSARTAN TABS 50MG] 90 Tablet 1 Sig: TAKE 1 TABLET DAILY ARB Protocol Passed - 08/07/2023 11:59 PM Passed - Serum potassium on record in past 12 months POTASSIUM Date Value Ref Range Status 03/31/2023 4.3 3.5 - 5.1 mmol/L Final Passed - BP on record in the past year Clinician-entered: BP Readings from Last 3 Encounters: 04/07/23 116/72 10/05/22 112/60 09/29/22 126/68 Patient-entered: No data recorded Passed - Visit with relevant provider in past year or upcoming 90 days Recent Visits Date Type Provider Dept 04/07/23 Office Visit Don Caba MD [facility] 10/05/22 Office Visit Don Caba MD [facility] 09/29/22 Office Visit Tyrell Garcia, BUSINESS DEVELOPMENT ASSISTANT, CUSTOMER RETENTION SPECIALIST [facility] Showing recent visits within past 365 days and meeting all other requirements Future Appointments Date Type Provider Dept 10/13/23 Appointment Don [facility] MD [facility] Showing future appointments within next 90 days and meeting all other requirements Passed - GFR on record in past 12 months GFR, EST. NONAFRICAN Date Value Ref Range Status 03/31/2023 >60 >=60 Final documented in this encounter Plan of Treatment Upcoming Encounters Date Type Department Care Team (Late st Contact Info) Description 10/02/2024 8:30 AM CDT Lab [facility] #2 [facility] [address] [place] [address] [place] Lab/Ancillary 10/09/2024 1:30 PM CDT [facility] [place] [facility]2 [facility] [address] Don Caba MD #2 [facility] [address] [place] [address] documented as of this encounter Visit Diagnoses Not on filedocumented in this encounter Additional Health Concerns Assessment Noted Time PHQ-9 Depression Total Score: 0 03/12/19 21 2:36 PM PATIENT SUPPORT PARTNER documented as of this encounter Care Teams Editor In Chief Newspaper Relationship Specialty Start Date End Date Don Caba MD #2 [facility] [address] [place] [address] PCP - General Family Medicine 11/21/15 Isaiah Solomon MD #2 [facility] [address] [place] [address] Consulting Physician Colon and Rectal Surgery 06/24/22 documented as of this encounter
[2024-07-14 16:36] VITALS: BP 143/87; PULSE 99; RESP 16; TEMP 36.6; O2SAT 100
[2024-07-14] MEDS: methylPREDNISolone SOD SUCC 125 MG VIAL IM (16:53)
[2024-07-14] MEDS: TETANUS,DIPHTHERIA,AC PERTUSSIS ADULT (0.5 ML) BOOSTRIX IM (16:53)
--- NOTE | 2024-07-14 17:14 | ED_ITS ---
HPI - General Adult General Chief complaint: Skin/Abscess/Foreign Body Stated complaint: spider bite Source: patient Mode of arrival: ambulatory Limitations: no limitations History of Present Illness HPI narrative: Patient presents for evaluation of right hand redness, swelling, and itching since yesterday. He felt like he was bit by something yesterday, suspecting it to be a spider, and his symptoms started shortly thereafter. His swelling and redness has progressively worsened and now extends just beyond the right wrist. He denies any fever, chills, loss of range of motion, pain, or drainage from the area. He is not diabetic. He is right-hand dominant. Related Data Home Medications Medication Instructions Recorded Confirmed Last Taken Type losartan 50 mg tablet mg 07/14/24 Unknown History sildenafil 100 mg tablet mg 07/14/24 Unknown History simvastatin 40 mg tablet mg 07/14/24 Unknown History Allergies Allergy/AdvReac Type Severity Reaction Status Date / Time No Known Allergies Allergy Verified 07/14/24 16:35 Review of Systems Review of Systems: CONSTITUTIONAL: Denies fever, chills, or sweats. EYES: Denies visual changes, redness, or discharge. ENT: Denies rhinorrhea, congestion, sore throat, or otalgia. CARDIOVASCULAR: Denies chest pain, palpitations, or edema. RESPIRATORY: Denies cough or dyspnea. GASTROINTESTINAL: Denies abdominal pain, nausea, vomiting, or diarrhea. GENITOURINARY: Denies dysuria or hematuria. SKIN: Reports redness and itching to the right hand MUSCULOSKELETAL: reports swelling to the right hand. Denies associated pain. NEUROLOGIC: Denies headache, numbness, dizziness, or weakness. PSYCHIATRIC: Denies anxiety or depression. [facility] Past Medical History Medical History No pertinent past medical history Surgical History Surgical History No pertinent past surgical history Family History Family History Mother Family history non-contributory Social History Social History Smoking packs per day: 0.5 Smoking cigarettes per day: 10.0 Smoking status: Current every day smoker Tobacco type: cigarettes Alcohol intake: current Alcohol use details: 6 Living arrangements: alone Gender identity (if verbalized by the patient): Male Spiritual care concerns: No Exam Narrative: GENERAL: Well-appearing, well-nourished, and in no acute distress. HEAD: Normocephalic, atraumatic. EYES: PERRLA and EOMI. ENT: Nares clear, no rhinorrhea or epistaxis. Mucous membranes moist. Oropharynx without tonsillar hypertrophy exudate or other lesions. Bilateral TMs pearly cazares nonbulging NECK: Supple. No adenopathy or masses. No carotid bruits or JVD CHEST: Clear to auscultation. No respiratory distress. No wheezes rales or rhonchi HEART: Regular rate and rhythm. No murmur heard. Normal peripheral pulses. ABDOMEN: Soft, nontender, nondistended, normal active bowel sounds. EXTREMITIES: Normal range of motion. right hand is edematous SKIN: there is erythema to the right hand which extends just beyond the right wrist. area blanches NEURO: No focal deficits. Alert and oriented x3. PSYCH: Normal mood and affect. Course Course Emergency Course: this is a 63-year-old male who presented for evaluation of swelling, redness and itching to the right hand. This appears to be an allergic response, most likely to an insect bite. He could have an associated cellulitis. We discussed taking antibiotics for the cellulitis and steroids /Benadryl for the allergic reaction. Was advised to monitor the site closely and go to the emergency department if this migrated up the arm or he had worsening symptoms. He will otherwise follow up with primary care provider next week. Patient in agreement with plan of care. Level of Care: Express Care Visit Vital Signs Vital signs: Vital Signs Temperature 36.6 C 07/14/24 16:36 Pulse Rate 99 07/14/24 16:36 Respiratory Rate 16 07/14/24 16:36 Blood Pressure 143/87 H 07/14/24 16:36 Pulse Oximetry 100 07/14/24 16:36 Oxygen Delivery Room Air 07/14/24 16:36 Temperature 36.6 C 07/14/24 16:36 Pulse Rate 99 07/14/24 16:36 Respiratory Rate 16 07/14/24 16:36 Blood Pressure 143/87 H 07/14/24 16:36 Pulse Oximetry 100 07/14/24 16:36 Oxygen Delivery Room Air 07/14/24 16:36 Medical Decision Making Vital Signs Vital Signs: Vital Signs Temperature 36.6 C 07/14/24 16:36 Pulse Rate 99 07/14/24 16:36 Respiratory Rate 16 07/14/24 16:36 Blood Pressure 143/87 H 07/14/24 16:36 Pulse Oximetry 100 07/14/24 16:36 Oxygen Delivery Room Air 07/14/24 16:36 Temperature 36.6 C 07/14/24 16:36 Pulse Rate 99 07/14/24 16:36 Respiratory Rate 16 07/14/24 16:36 Blood Pressure 143/87 H 07/14/24 16:36 Pulse Oximetry 100 07/14/24 16:36 Oxygen Delivery Room Air 07/14/24 16:36 Discharge Plan Discharge Clinical Impression: Cellulitis, Allergic reaction Patient Disposition: Home Condition: Stable Instructions: Antibiotic Form, Cellulitis (ED), Allergies (ED) Additional Instructions: Please take antibiotics and steroids as directed. Benadryl should help with swelling, itching and redness Please monitor symptoms closely and go to the emergency department if you have increase in redness, swelling or symptoms migrate up the arm Applying ice may help Patient Language: Citizen Of [place] Prescriptions: New cephalexin 500 mg capsule 500 mg PO Q6H Qty: 40 0RF sulfamethoxazole-trimethoprim [Bactrim DS] 800-160 mg tablet 1 tablet PO Q12H Qty: 20 0RF prednisone 50 mg tablet 50 mg PO DAILY Qty: 5 0RF No Action losartan 50 mg tablet sildenafil 100 mg tablet simvastatin 40 mg tablet Follow-up/Referrals: Gertrudis,Don Cuello MD [Primary Care Provider] - Time of Disposition: 16:49
== END 2024-07-14 17:14 | disposition home or self-care (01) ==
PROVIDERS: Emergency Provider Nurse Practitioner; PCP Internal Medicine
DX: L03.113 Cellulitis of right upper limb (principal); T78.40XA Allergy, unspecified, initial encounter; Z23 Encounter for immunization; F17.210 Nicotine dependence, cigarettes, uncomplicated
CPT/HCPCS: 90471; 90715; 96372; 99203; G0463; J2919